=== PATIENT | male | born 1955 | race Caucasian/White ===

== ENCOUNTER 2019-08-23 03:11 | Inpatient (IN) ==
[2019-08-23] MEDS ORDERED: Ondansetron 4 MG/2 ML VIAL IVP ONE (03:22)
[2019-08-23] MEDS ORDERED: *HR* FentaNYL (PF) 100 MCG/2 ML VIAL IVP ONE (03:22)
[2019-08-23] MEDS ORDERED: Aspirin 81 MG TAB.CHEW PO ONE (03:27)
[2019-08-23 04:08] LABS: Basophils # 0.1 K/mcL (0.0-0.2); Basophils % 0.7 %; Eosinophils % 0.4 %; Hematocrit 39.5 % (37.5-50.1); Hemoglobin 13.6 g/dL (12.9-16.9); Immature Granulocytes % 0.4 % (0-4); Lymphocytes # 1.5 K/mcL (0.6-4.6); Lymphocytes % 20.8 %; Mean Corpuscular HGB Conc 34.4 g/dL (31.6-35.5); Mean Corpuscular Hemoglobin 32.9 pg (28.0-33.3); Mean Corpuscular Volume 95.6 fL (83.0-100.0); Mean Platelet Volume 9.9 fL (9.4-12.4); Monocytes # 0.5 K/mcL (0.0-1.3); Monocytes % 6.9 %; Neutrophils # 5.1 K/mcL (1.6-8.9); Platelet Count 200 K/mcL (140-400); Red Blood Count 4.13 M/mcL (4.19-5.50); Red Cell Distribution Width 13.1 % (11.5-14.5); Segmented Neutrophils % 70.8 %; White Blood Count 7.3 K/mcL (4.3-11.1)
[2019-08-23 04:09] LABS: Prothrombin Time 11.6 Seconds (9.4-12.1)
[2019-08-23 04:12] LABS: Activated Partial Thrombo Time 28.7 Seconds (26.0-36.0)
[2019-08-23 04:16] LABS: BUN/Creatinine Ratio 16 (6-26); Blood Urea Nitrogen 9 mg/dL (8-23); Calcium 8.7 mg/dL (8.6-10.3); Carbon Dioxide 24 mEq/L (23-29); Chloride 102 mEq/L (98-107); Glucose 91 mg/dL (70-105); Osmolality,Calculated 280 (280-300); Potassium 4.1 mEq/L (3.5-5.1); Sodium 136 mEq/L (136-145); eGFR For African Americans > 60 (> 60); eGFR For Non-African Americans > 60 (> 60)
[2019-08-23 04:17] LABS: Troponin I < 0.03 ng/mL (< 0.04)
[2019-08-23] MEDS ORDERED: 0.9 % Sodium Chloride 1,000 ML IVC ONE ×2 (04:33→06:03)
[2019-08-23] MEDS ORDERED: *HR* Heparin 5,000 UNIT/ML VIAL IVP ONE (04:49)
[2019-08-23 05:12] LABS: Ethanol 159 mg/dL (Less than 10)
[2019-08-23] MEDS ORDERED: *HR* HYDROmorphone (PF) 1 MG/ML SYRINGE IVP ONE (05:55)
[2019-08-23] MEDS ORDERED: *HR* Metoprolol 5 MG/5 ML VIAL IVP ONE (08:01)
[2019-08-23] MEDS: Heparin 25,000 UNIT/250 ML D5W 25,000 UNIT/250 ML IV.SOLN IVC SCH (08:32)
[2019-08-23] MEDS ORDERED: Naloxone 0.4 MG/ML INJ IVP PRN (08:57)
[2019-08-23] MEDS ORDERED: Ondansetron 4 MG/2 ML VIAL IVP PRN (08:57)
[2019-08-23] MEDS ORDERED: *HR* Heparin 5,000 UNIT/ML VIAL IVP PRN (09:00)
[2019-08-23] MEDS ORDERED: 0.9 % Sodium Chloride 1,000 ML IVC SCH (09:00)
[2019-08-23] MEDS ORDERED: *HR* LORazepam 2 MG/ML VIAL IVP PRN (09:25)
[2019-08-23] MEDS: levETIRAcetam 250 MG TABLET PO SCH ×2 (10:47→20:23)
[2019-08-23] MEDS ORDERED: *HR* HYDROmorphone 2 MG TABLET PO ONE (20:09)
[2019-08-24] MEDS: Heparin 25,000 UNIT/250 ML D5W 25,000 UNIT/250 ML IV.SOLN IVC SCH ×2 (04:08→23:27)
[2019-08-24] MEDS ORDERED: *HR* Metoprolol 5 MG/5 ML VIAL IVP ONE (05:52)
[2019-08-24] MEDS: *HR* HYDROcodone/Acet 5/325 mg TABLET PO PRN (06:56)
[2019-08-24] MEDS: levETIRAcetam 250 MG TABLET PO SCH ×2 (07:45→20:17)
[2019-08-24 08:45] LABS: Hematocrit 40.4 % (37.5-50.1); Hemoglobin 13.8 g/dL (12.9-16.9); Mean Corpuscular HGB Conc 34.2 g/dL (31.6-35.5); Mean Corpuscular Hemoglobin 32.6 pg (28.0-33.3); Mean Corpuscular Volume 95.5 fL (83.0-100.0); Mean Platelet Volume 10.5 fL (9.4-12.4); Platelet Count 160 K/mcL (140-400); Red Blood Count 4.23 M/mcL (4.19-5.50); White Blood Count 6.9 K/mcL (4.3-11.1)
[2019-08-24 09:14] LABS: BUN/Creatinine Ratio 13 (6-26); Blood Urea Nitrogen 8 mg/dL (8-23); Carbon Dioxide 28 mEq/L (23-29); Chloride 100 mEq/L (98-107); Glucose 95 mg/dL (70-105); Osmolality,Calculated 284 (280-300); Potassium 4.1 mEq/L (3.5-5.1); Sodium 138 mEq/L (136-145); eGFR For African Americans > 60 (> 60); eGFR For Non-African Americans > 60 (> 60)
[2019-08-24 09:18] LABS: Thyroid Stimulating Hormone 3.132 mcIU/mL (0.340-5.600)
[2019-08-24] MEDS: Metoprolol XL (24 HR) Succ 25 MG TAB.ER.24H PO SCH (10:38)
[2019-08-24] MEDS: Gabapentin 400 MG CAPSULE PO SCH ×2 (15:39→20:18)
[2019-08-25 01:20] LABS: Hematocrit 37.5 % (37.5-50.1); Mean Corpuscular HGB Conc 34.7 g/dL (31.6-35.5); Mean Corpuscular Hemoglobin 32.7 pg (28.0-33.3); Mean Corpuscular Volume 94.5 fL (83.0-100.0); Platelet Count 148 K/mcL (140-400); Red Blood Count 3.97 M/mcL (4.19-5.50); Red Cell Distribution Width 12.9 % (11.5-14.5); White Blood Count 7.1 K/mcL (4.3-11.1)
[2019-08-25 01:48] LABS: BUN/Creatinine Ratio 15 (6-26); Blood Urea Nitrogen 9 mg/dL (8-23); Calcium 8.9 mg/dL (8.6-10.3); Carbon Dioxide 27 mEq/L (23-29); Chloride 98 mEq/L (98-107); Glucose 117 mg/dL (70-105); Osmolality,Calculated 286 (280-300); Sodium 138 mEq/L (136-145); eGFR For African Americans > 60 (> 60); eGFR For Non-African Americans > 60 (> 60)
[2019-08-25] MEDS: *HR* LORazepam 2 MG/ML VIAL IVP PRN ×4 (03:45→15:33)
[2019-08-25] MEDS ORDERED: *HR* Metoprolol 5 MG/5 ML VIAL IVP ONE (04:29)
[2019-08-25] MEDS: Loratadine 10 MG TABLET PO SCH (07:36)
[2019-08-25] MEDS: Fluticasone Propionate Nasal 50 MCG/SPRAY BOTTLE NS SCH (07:36)
[2019-08-25] MEDS: Metoprolol XL (24 HR) Succ 25 MG TAB.ER.24H PO SCH (07:36)
[2019-08-25] MEDS: levETIRAcetam 250 MG TABLET PO SCH ×2 (07:36→19:55)
[2019-08-25] MEDS: Folic Acid 1 MG TABLET PO SCH (07:36)
[2019-08-25] MEDS: Gabapentin 400 MG CAPSULE PO SCH ×3 (07:36→19:54)
[2019-08-25] MEDS ORDERED: Metoprolol XL (24 HR) Succ 25 MG TAB.ER.24H PO SCH ×2 (09:00→11:18)
[2019-08-25 12:42] LABS: Amphetamine Screen,Urine Negative ng/mL (Cutoff=1000); Barbiturate Screen,Urine Negative ng/mL (Cutoff=200); Benzodiazepines Screen,Urine Negative ng/mL (Cutoff=200); Cannabinoid Screen,Urine Negative ng/mL (Cutoff = 50); Cocaine Screen,Urine Negative ng/mL (Cutoff= 300); Opiate Screen,Urine Positive ng/mL (Cutoff=300); Phencyclidine Screen,Urine Negative ng/mL (Cutoff=25)
[2019-08-25] MEDS ORDERED: Acetaminophen 325 MG TABLET PO PRN (15:22)
[2019-08-25 17:35] LABS: Adenovirus Not Detected (Not Detect); Bordetella Pertussis Not Detected (Not Detect); Chlamydophila pneumoniae Not Detected (Not Detect); Coronavirus 229E Not Detected (Not Detect); Coronavirus HKU1 Not Detected (Not Detect); Coronavirus NL63 Not Detected (Not Detect); Coronavirus OC43 Not Detected (Not Detect); Human Metapneumovirus Not Detected (Not Detect); Human Rhinovirus/Enterovirus Not Detected (Not Detect); Influenza A Subtype 2009 H1 Not Detected (Not Detect); Influenza B Not Detected (Not Detect); Mycoplasma pneumoniae Not Detected (Not Detect); Parainfluenza Virus 1 Not Detected (Not Detect); Parainfluenza Virus 2 Not Detected (Not Detect); Parainfluenza Virus 3 Not Detected (Not Detect); Parainfluenza Virus 4 Not Detected (Not Detect); Respiratory Syncytial Virus Not Detected (Not Detect)
[2019-08-25] MEDS: Heparin 25,000 UNIT/250 ML D5W 25,000 UNIT/250 ML IV.SOLN IVC SCH (18:44)
[2019-08-26] MEDS: *HR* LORazepam 2 MG/ML VIAL IVP PRN (00:35)
[2019-08-26 01:17] LABS: Basophils % 0.4 %; Eosinophils % 0.4 %; Hematocrit 37.1 % (37.5-50.1); Hemoglobin 12.6 g/dL (12.9-16.9); Immature Granulocytes % 0.2 % (0-4); Lymphocytes # 2.2 K/mcL (0.6-4.6); Lymphocytes % 20.6 %; Mean Corpuscular Volume 97.1 fL (83.0-100.0); Mean Platelet Volume 11.2 fL (9.4-12.4); Monocytes % 9.6 %; Neutrophils # 7.4 K/mcL (1.6-8.9); Platelet Count 131 K/mcL (140-400); Red Blood Count 3.82 M/mcL (4.19-5.50); Red Cell Distribution Width 12.9 % (11.5-14.5); Segmented Neutrophils % 68.8 %
[2019-08-26 01:18] LABS: White Blood Count 10.7 K/mcL (4.3-11.1)
[2019-08-26 01:33] LABS: BUN/Creatinine Ratio 15 (6-26); Blood Urea Nitrogen 8 mg/dL (8-23); Calcium 8.9 mg/dL (8.6-10.3); Carbon Dioxide 28 mEq/L (23-29); Chloride 98 mEq/L (98-107); Glucose 94 mg/dL (70-105); Osmolality,Calculated 276 (280-300); Potassium 3.6 mEq/L (3.5-5.1); Sodium 134 mEq/L (136-145); eGFR For African Americans > 60 (> 60); eGFR For Non-African Americans > 60 (> 60)
[2019-08-26] MEDS ORDERED: *HR* LORazepam 2 MG/ML VIAL IVP STA (03:53)
[2019-08-26] MEDS: Gabapentin 400 MG CAPSULE PO SCH ×3 (08:56→21:34)
[2019-08-26] MEDS: levETIRAcetam 250 MG TABLET PO SCH ×2 (08:56→21:34)
[2019-08-26] MEDS: Loratadine 10 MG TABLET PO SCH (08:56)
[2019-08-26] MEDS: Folic Acid 1 MG TABLET PO SCH (08:56)
[2019-08-26] MEDS: Fluticasone Propionate Nasal 50 MCG/SPRAY BOTTLE NS SCH (08:57)
[2019-08-26] MEDS: Heparin 25,000 UNIT/250 ML D5W 25,000 UNIT/250 ML IV.SOLN IVC SCH (15:06)
[2019-08-27 00:48] LABS: Basophils % 0.5 %; Eosinophils # 0.1 K/mcL (0.0-0.6); Eosinophils % 1.2 %; Hematocrit 34.7 % (37.5-50.1); Immature Granulocytes % 0.1 % (0-4); Lymphocytes # 1.7 K/mcL (0.6-4.6); Lymphocytes % 21.7 %; Mean Corpuscular HGB Conc 34.6 g/dL (31.6-35.5); Mean Corpuscular Hemoglobin 32.1 pg (28.0-33.3); Mean Corpuscular Volume 92.8 fL (83.0-100.0); Mean Platelet Volume 10.5 fL (9.4-12.4); Monocytes # 0.9 K/mcL (0.0-1.3); Monocytes % 12.2 %; Neutrophils # 4.9 K/mcL (1.6-8.9); Platelet Count 149 K/mcL (140-400); Red Blood Count 3.74 M/mcL (4.19-5.50); Red Cell Distribution Width 12.7 % (11.5-14.5); Segmented Neutrophils % 64.3 %; White Blood Count 7.6 K/mcL (4.3-11.1)
[2019-08-27 01:02] LABS: BUN/Creatinine Ratio 20 (6-26); Blood Urea Nitrogen 14 mg/dL (8-23); Calcium 8.7 mg/dL (8.6-10.3); Carbon Dioxide 26 mEq/L (23-29); Chloride 100 mEq/L (98-107); Glucose 109 mg/dL (70-105); Osmolality,Calculated 279 (280-300); Potassium 3.4 mEq/L (3.5-5.1); Sodium 134 mEq/L (136-145); eGFR For African Americans > 60 (> 60); eGFR For Non-African Americans > 60 (> 60)
[2019-08-27] MEDS ORDERED: Potassium Chloride Elixir 20 MEQ/15 ML UDC PO ONE (09:14)
[2019-08-27] MEDS: Fluticasone Propionate Nasal 50 MCG/SPRAY BOTTLE NS SCH (09:18)
[2019-08-27] MEDS: Loratadine 10 MG TABLET PO SCH (09:21)
[2019-08-27] MEDS: Folic Acid 1 MG TABLET PO SCH (09:21)
[2019-08-27] MEDS: levETIRAcetam 250 MG TABLET PO SCH ×2 (09:21→20:17)
[2019-08-27] MEDS: Gabapentin 400 MG CAPSULE PO SCH ×3 (09:21→20:17)
[2019-08-27] MEDS: Metoprolol XL (24 HR) Succ 50 MG TAB.ER.24H PO SCH (09:22)
[2019-08-27] MEDS: Aspirin 81 MG TAB.CHEW PO SCH (12:32)
[2019-08-27] MEDS: *HR* LORazepam 2 MG/ML VIAL IVP PRN ×2 (14:12→23:57)
[2019-08-27] MEDS: Azithromycin 500 MG in 0.9 % Sodium Chloride 250 ML IVPB SCH (17:11)
[2019-08-27] MEDS: cefTRIAXone 2,000 MG in Water for inj. (sterile) 20 ML IVP SCH (17:12)
[2019-08-28] MEDS: *HR* LORazepam 2 MG/ML VIAL IVP PRN ×2 (01:01→20:21)
[2019-08-28 06:59] LABS: Basophils % 0.6 %; Eosinophils # 0.2 K/mcL (0.0-0.6); Eosinophils % 2.6 %; Hematocrit 32.2 % (37.5-50.1); Hemoglobin 10.9 g/dL (12.9-16.9); Immature Granulocytes % 0.3 % (0-4); Lymphocytes # 1.2 K/mcL (0.6-4.6); Lymphocytes % 20.1 %; Mean Corpuscular HGB Conc 33.9 g/dL (31.6-35.5); Mean Corpuscular Hemoglobin 32.4 pg (28.0-33.3); Mean Corpuscular Volume 95.8 fL (83.0-100.0); Mean Platelet Volume 10.4 fL (9.4-12.4); Monocytes # 0.8 K/mcL (0.0-1.3); Monocytes % 13.3 %; Neutrophils # 3.9 K/mcL (1.6-8.9); Platelet Count 159 K/mcL (140-400); Red Blood Count 3.36 M/mcL (4.19-5.50); Red Cell Distribution Width 12.7 % (11.5-14.5); Segmented Neutrophils % 63.1 %; White Blood Count 6.2 K/mcL (4.3-11.1)
[2019-08-28 07:19] LABS: BUN/Creatinine Ratio 20 (6-26); Blood Urea Nitrogen 11 mg/dL (8-23); Calcium 8.8 mg/dL (8.6-10.3); Carbon Dioxide 26 mEq/L (23-29); Chloride 101 mEq/L (98-107); Glucose 106 mg/dL (70-105); Osmolality,Calculated 286 (280-300); Potassium 3.5 mEq/L (3.5-5.1); Sodium 138 mEq/L (136-145); eGFR For African Americans > 60 (> 60); eGFR For Non-African Americans > 60 (> 60)
[2019-08-28] MEDS: Fluticasone Propionate Nasal 50 MCG/SPRAY BOTTLE NS SCH (08:21)
[2019-08-28] MEDS: levETIRAcetam 250 MG TABLET PO SCH ×2 (08:22→20:24)
[2019-08-28] MEDS: Gabapentin 400 MG CAPSULE PO SCH ×3 (08:22→20:21)
[2019-08-28] MEDS: Metoprolol XL (24 HR) Succ 50 MG TAB.ER.24H PO SCH (08:22)
[2019-08-28] MEDS: Aspirin 81 MG TAB.CHEW PO SCH (08:22)
[2019-08-28] MEDS: Folic Acid 1 MG TABLET PO SCH (08:22)
[2019-08-28] MEDS: Loratadine 10 MG TABLET PO SCH (08:22)
[2019-08-28] MEDS ORDERED: *HR* Metoprolol 5 MG/5 ML VIAL IVP PRN (15:16)
[2019-08-28] MEDS: cefTRIAXone 2,000 MG in Water for inj. (sterile) 20 ML IVP SCH (16:08)
[2019-08-28] MEDS: Azithromycin 500 MG in 0.9 % Sodium Chloride 250 ML IVPB SCH (16:09)
[2019-08-28] MEDS: *HR* Heparin 5,000 UNIT/ML VIAL SQ SCH (20:21)
[2019-08-29 03:34] LABS: BUN/Creatinine Ratio 17 (6-26); Blood Urea Nitrogen 10 mg/dL (8-23); Calcium 8.9 mg/dL (8.6-10.3); Carbon Dioxide 26 mEq/L (23-29); Chloride 103 mEq/L (98-107); Glucose 103 mg/dL (70-105); Magnesium 1.7 mg/dL (1.6-2.6); Osmolality,Calculated 285 (280-300); Potassium 3.4 mEq/L (3.5-5.1); Sodium 138 mEq/L (136-145); eGFR For African Americans > 60 (> 60); eGFR For Non-African Americans > 60 (> 60)
[2019-08-29] MEDS: *HR* Heparin 5,000 UNIT/ML VIAL SQ SCH ×3 (06:13→22:28)
[2019-08-29] MEDS: Gabapentin 400 MG CAPSULE PO SCH ×3 (07:42→19:40)
[2019-08-29] MEDS: Metoprolol XL (24 HR) Succ 50 MG TAB.ER.24H PO SCH (07:42)
[2019-08-29] MEDS: Folic Acid 1 MG TABLET PO SCH (07:42)
[2019-08-29] MEDS: Aspirin 81 MG TAB.CHEW PO SCH (07:42)
[2019-08-29] MEDS: levETIRAcetam 250 MG TABLET PO SCH ×2 (07:42→19:40)
[2019-08-29] MEDS: Loratadine 10 MG TABLET PO SCH (07:43)
[2019-08-29] MEDS: *HR* LORazepam 2 MG/ML VIAL IVP PRN ×3 (12:45→21:17)
[2019-08-29] MEDS: Fluticasone Propionate Nasal 50 MCG/SPRAY BOTTLE NS SCH (18:30)
[2019-08-29] MEDS: cefTRIAXone 2,000 MG in Water for inj. (sterile) 20 ML IVP SCH (18:42)
[2019-08-29] MEDS: Azithromycin 500 MG in 0.9 % Sodium Chloride 250 ML IVPB SCH (18:43)
[2019-08-30] MEDS: *HR* Heparin 5,000 UNIT/ML VIAL SQ SCH ×3 (07:07→21:02)
[2019-08-30] MEDS: Metoprolol XL (24 HR) Succ 50 MG TAB.ER.24H PO SCH (09:03)
[2019-08-30] MEDS: Loratadine 10 MG TABLET PO SCH (09:26)
[2019-08-30] MEDS: Aspirin 81 MG TAB.CHEW PO SCH (09:26)
[2019-08-30] MEDS: Fluticasone Propionate Nasal 50 MCG/SPRAY BOTTLE NS SCH (09:27)
[2019-08-30] MEDS: levETIRAcetam 250 MG TABLET PO SCH ×3 (09:27→21:19)
[2019-08-30] MEDS: Folic Acid 1 MG TABLET PO SCH (09:27)
[2019-08-30] MEDS: Gabapentin 400 MG CAPSULE PO SCH ×4 (09:27→21:20)
[2019-08-30] MEDS ORDERED: *HR* Midazolam HCl 2 MG/2 ML VIAL ONE ×2 (10:11→11:49)
[2019-08-30] MEDS ORDERED: *HR* FentaNYL (PF) 100 MCG/2 ML VIAL ONE (10:11)
[2019-08-30] MEDS ORDERED: Ropivacaine/PF 0.5% 30 ML VIAL ONE (10:11)
[2019-08-30] MEDS ORDERED: Lidocaine -MPF 2% 5 ML VIAL ONE (10:16)
[2019-08-30] MEDS ORDERED: *HR* Propofol 200 MG/20 ML VIAL IVP ONE (10:37)
[2019-08-30] MEDS ORDERED: Dexamethasone 4 MG/ML VIAL ONE (10:39)
[2019-08-30] MEDS ORDERED: Ondansetron 4 MG/2 ML VIAL ONE (10:39)
[2019-08-30] MEDS ORDERED: Lidocaine -MPF 2% 2 ML VIAL ONE (10:39)
[2019-08-30] MEDS ORDERED: Acetaminophen IV 1,000 MG/100 ML INFUS..BTL ONE (11:27)
[2019-08-30] MEDS ORDERED: *HR* FentaNYL (PF) 100 MCG/2 ML VIAL IVP PRN (11:43)
[2019-08-30] MEDS ORDERED: Ondansetron 4 MG/2 ML VIAL IVP ONE (11:43)
[2019-08-30] MEDS ORDERED: *HR* PHENYLEPHRINE 1,000 MCG/10 ML SYRINGE IVP ONE ×2 (12:37→13:38)
[2019-08-30] MEDS ORDERED: *HR* Phenylephrine 10 MG/ML VIAL ONE (12:48)
[2019-08-30] MEDS ORDERED: *HR* Vasopressin 20 UNIT/ML VIAL ONE (15:39)
[2019-08-30] MEDS: Azithromycin 500 MG in 0.9 % Sodium Chloride 250 ML IVPB SCH (16:10)
[2019-08-30] MEDS: cefTRIAXone 2,000 MG in Water for inj. (sterile) 20 ML IVP SCH (16:10)
[2019-08-30] MEDS: *HR* LORazepam 2 MG/ML VIAL IVP PRN ×2 (16:55→19:53)
[2019-08-31] MEDS ORDERED: Benzonatate 100 MG CAPSULE PO PRN (03:18)
[2019-08-31] MEDS: *HR* Heparin 5,000 UNIT/ML VIAL SQ SCH ×3 (05:49→20:18)
[2019-08-31] MEDS: Gabapentin 400 MG CAPSULE PO SCH ×3 (07:52→20:18)
[2019-08-31] MEDS: Loratadine 10 MG TABLET PO SCH (07:52)
[2019-08-31] MEDS: Aspirin 81 MG TAB.CHEW PO SCH (07:52)
[2019-08-31] MEDS: levETIRAcetam 250 MG TABLET PO SCH ×2 (07:52→20:18)
[2019-08-31] MEDS: Folic Acid 1 MG TABLET PO SCH (07:52)
[2019-08-31] MEDS: Metoprolol XL (24 HR) Succ 50 MG TAB.ER.24H PO SCH (07:52)
[2019-08-31] MEDS: Fluticasone Propionate Nasal 50 MCG/SPRAY BOTTLE NS SCH (07:53)
[2019-08-31 15:02] LABS: Basophils % 0.2 %; Hematocrit 32.7 % (37.5-50.1); Hemoglobin 11.4 g/dL (12.9-16.9); Immature Granulocytes % 0.5 % (0-4); Lymphocytes # 1.1 K/mcL (0.6-4.6); Lymphocytes % 9.2 %; Mean Corpuscular HGB Conc 34.9 g/dL (31.6-35.5); Mean Corpuscular Hemoglobin 32.8 pg (28.0-33.3); Mean Platelet Volume 10.4 fL (9.4-12.4); Monocytes % 8.8 %; Neutrophils # 9.4 K/mcL (1.6-8.9); Platelet Count 392 K/mcL (140-400); Red Blood Count 3.48 M/mcL (4.19-5.50); Red Cell Distribution Width 13.1 % (11.5-14.5); Segmented Neutrophils % 81.3 %
[2019-08-31 15:04] LABS: White Blood Count 11.6 K/mcL (4.3-11.1)
[2019-08-31 15:22] LABS: BUN/Creatinine Ratio 25 (6-26); Blood Urea Nitrogen 17 mg/dL (8-23); Calcium 9.1 mg/dL (8.6-10.3); Carbon Dioxide 24 mEq/L (23-29); Chloride 102 mEq/L (98-107); Glucose 113 mg/dL (70-105); Osmolality,Calculated 282 (280-300); Potassium 3.4 mEq/L (3.5-5.1); Sodium 135 mEq/L (136-145); eGFR For African Americans > 60 (> 60); eGFR For Non-African Americans > 60 (> 60)
[2019-09-01] MEDS: *HR* HYDROcodone/Acet 5/325 mg TABLET PO PRN
[2019-09-01] MEDS: *HR* Heparin 5,000 UNIT/ML VIAL SQ SCH ×2 (05:37→13:15)
[2019-09-01] MEDS: levETIRAcetam 250 MG TABLET PO SCH (08:38)
[2019-09-01] MEDS: Gabapentin 400 MG CAPSULE PO SCH (08:38)
[2019-09-01] MEDS: Fluticasone Propionate Nasal 50 MCG/SPRAY BOTTLE NS SCH (08:39)
[2019-09-01] MEDS: Loratadine 10 MG TABLET PO SCH (08:39)
[2019-09-01] MEDS: Metoprolol XL (24 HR) Succ 50 MG TAB.ER.24H PO SCH (08:39)
[2019-09-01] MEDS: Folic Acid 1 MG TABLET PO SCH (08:39)
[2019-09-01] MEDS: Aspirin 81 MG TAB.CHEW PO SCH (08:39)
[2019-09-01 11:01] VITALS: BP 99/73
== END 2019-09-01 14:41 | disposition left against medical advice (07) | DRG 315 ==
LOC: EMEROOARM 03:11 → CDU 03:11 → SUATTDRO 05:19 → CDU 07:51 → 3NENU 18:50 → SUATTDRO 08-25 19:19 → 3NENU 08-31 17:35
PROVIDERS: ADMIT Family Medicine; ATTEND Internal Medicine